=== PATIENT | male | born 1990 | race African-American/Black ===

== ENCOUNTER 2017-09-23 21:59 | Emergency (ER) | payer SELFPAY ==
[~2017-09-23] VITALS: Ht 175.3 cm; Wt 84.1 kg
[2017-09-23 22:02] VITALS: BP 148/82; TEMP 97.9
[2017-09-23] MEDS ORDERED: NORCO 325 MG-51 TAB PO (22:46)
[2017-09-23] MEDS ORDERED: DOXYCYCLINE 10100 MG PO (22:46)
[2017-09-23 23:08] VITALS: PULSE 84
== END 2017-09-23 23:08 | disposition home or self-care (01) ==
LOC: COL.ER 21:59
DX: L02.01 Cutaneous abscess of face (principal)